=== PATIENT | male | born 1965 | race Caucasian/White ===

== ENCOUNTER 2016-10-13 16:03 | Emergency (ER) | payer OTHER ==
[~2016-10-13] VITALS: Ht 188 cm; Wt 108.0 kg
[2016-10-13 17:19] VITALS: BP 136/93
== END 2016-10-13 18:39 | disposition home or self-care (01) ==
LOC: ER 16:09
DX: T59.91XA Toxic effect of unspecified gases, fumes and vapors, accidental (unintentional), initial encounter (principal); Z88.0 Allergy status to penicillin; X58.XXXA Exposure to other specified factors, initial encounter; Y99.0 Civilian activity done for income or pay; Y93.89 Activity, other specified; Y92.89 Other specified places as the place of occurrence of the external cause
CPT/HCPCS: 71020

== ENCOUNTER 2023-06-01 09:02 | Emergency (ER) | payer OTHER ==
[~2023-06-01] VITALS: Ht 188 cm; Wt 108.3 kg
[2023-06-01 09:53] VITALS: BP 117/93; PULSE 82; RESP 14; TEMP 98.2; O2SAT 97
== END 2023-06-01 10:22 | disposition home or self-care (01) ==
LOC: ER 09:02
DX: S93.402A Sprain of unspecified ligament of left ankle, initial encounter (principal); M10.9 Gout, unspecified; Z88.0 Allergy status to penicillin; X50.1XXA Overexertion from prolonged static or awkward postures, initial encounter; Y93.89 Activity, other specified; Y92.488 Other paved roadways as the place of occurrence of the external cause; Y99.8 Other external cause status
CPT/HCPCS: 73610